=== PATIENT | male | born 1980 | race Caucasian/White ===

== ENCOUNTER 2016-10-29 08:39 | Inpatient (IN) | payer OTHER ==
[~2016-10-29] VITALS: Ht 182.9 cm; Wt 84.9 kg
[2016-10-29] MEDS ORDERED: XOPENEX1.25 MG/3 IH (09:26)
[2016-10-29 09:34] LABS: BASOPHIL % 0.4 % (0-2); RED CELL DISTRIBUTION WIDTH 12.9 % (11.5-14.5)
[2016-10-29 09:41] LABS: PLATELET COUNT 109 x10^3mcL (130-400)
[2016-10-29 09:50] LABS: ALBUMIN 3.6 g/dL (3.4-5.0); AST/SGOT 95 U/L (15-37); BILIRUBIN TOTAL 0.5 mg/dL (0.20-1.00); CALCIUM 9.3 mg/dL (8.5-10.1); CARBON DIOXIDE 30.8 mmol/L (21-32); CHLORIDE SERUM 105 mmol/L (98-107); CREATININE SERUM 0.9 mg/dL (0.7-1.3); GFR1 > 60 mL/min; GLUCOSE SERUM 83 mg/dL (74-106); SODIUM SERUM 141 mmol/L (136-145); TOTAL PROTEIN, SERUM 7.5 g/dL (6.4-8.2)
[2016-10-29 09:51] LABS: ALKALINE PHOSPHATASE 112 U/L (46-116); ALT/SGPT 240 U/L (16-63)
[2016-10-29 11:08] LABS: microscopic required? NO
[2016-10-29 11:29] LABS: AMPHETAMINE QUAL UR NONE DETECTED (NEG <=1000)
[2016-10-29 11:40] LABS: UA SPECIFIC GRAVITY 1.015 (1.005-1.035); urine erythrocyte NEGATIVE (NEGATIVE)
[2016-10-29 11:56] VITALS: BP 123/67
[2016-10-29 13:47] LABS: MAGNESIUM 1.9 mg/dL (1.8-2.4)
[2016-10-29 13:52] LABS: CHOLESTEROL/HDL RATIO 2.4
[2016-10-29 17:06] VITALS: BP 117/72
[2016-10-29 19:30] VITALS: BP 103/68
[2016-10-29 21:14] VITALS: BP 115/59
[2016-10-30 06:04] VITALS: BP 103/56
[2016-10-30 07:25] LABS: CALCIUM 9.8 mg/dL (8.5-10.1); CARBON DIOXIDE 28.2 mmol/L (21-32); CHLORIDE SERUM 101 mmol/L (98-107); CREATININE SERUM 0.8 mg/dL (0.7-1.3); GFR1 > 60 mL/min; GLUCOSE SERUM 124 mg/dL (74-106); POTASSIUM SERUM 5.1 mmol/L (3.5-5.1); SODIUM SERUM 134 mmol/L (136-145)
[2016-10-30 08:00] LABS: BASOPHIL % 0.3 % (0-2)
[2016-10-30 08:01] LABS: PLATELET COUNT 111 x10^3mcL (130-400)
[2016-10-30 10:45] VITALS: BP 126/71
[2016-10-30 14:00] VITALS: BP 121/55
[2016-10-30 16:44] VITALS: BP 121/55
== END 2016-10-30 19:10 | disposition other institution (70) | DRG 306 ==
LOC: ED 08:39 → DU 10:27
PROVIDERS: Emergency Medicine; ADMIT Internal Medicine
DX: I38 Endocarditis, valve unspecified (principal); J96.00 Acute respiratory failure, unspecified whether with hypoxia or hypercapnia; I31.9 Disease of pericardium, unspecified; J45.901 Unspecified asthma with (acute) exacerbation; B18.2 Chronic viral hepatitis C; F15.10 Other stimulant abuse, uncomplicated; F11.10 Opioid abuse, uncomplicated; I25.10 Atherosclerotic heart disease of native coronary artery without angina pectoris; J20.9 Acute bronchitis, unspecified; R09.1 Pleurisy; Z90.81 Acquired absence of spleen
CPT/HCPCS: 83880; J1170; J1885; J2270; J2920; J7620; Q0092; Q9967